=== PATIENT | male | born 1965 | race Caucasian/White ===

== ENCOUNTER 2016-12-05 07:20 | Day surgery (SDC) | payer OTHER ==
[~2016-12-05] VITALS: Ht 180.3 cm; Wt 125.7 kg
[2016-12-05 07:46] VITALS: BP 133/91; PULSE 72; TEMP 97.7
[2016-12-05] MEDS ORDERED: ZOCOR 20MG20 MG PO (07:51)
[2016-12-05] MEDS ORDERED: ZESTRIL 20MG TA20 MG PO (07:51)
[2016-12-05] MEDS ORDERED: OMEGA-3 FISH1000 MG PO (07:52)
[2016-12-05] MEDS ORDERED: INDOCIN 25MG CA25 MG PO (07:53)
[2016-12-05 09:33] VITALS: BP 107/59; PULSE 70; TEMP 97.2
[2016-12-05 09:48] VITALS: BP 110/89; PULSE 71
[2016-12-05 10:03] VITALS: BP 119/71; PULSE 73
[2016-12-05 13:26] VITALS: BP 115/78; PULSE 77
== END 2016-12-05 10:20 | disposition home or self-care (01) ==
LOC: SDCO 07:20
DX: Z12.11 Encounter for screening for malignant neoplasm of colon (principal); K64.0 First degree hemorrhoids
CPT/HCPCS: OP; J2250; J3010; J7030